=== PATIENT | female | born 1995 | race African-American/Black ===

== ENCOUNTER 2018-12-02 08:57 | Emergency (ER) | payer SELFPAY ==
[~2018-12-02] VITALS: Ht 165.1 cm; Wt 55.0 kg
[2018-12-02 09:03] VITALS: BP 134/80
== END 2018-12-02 11:47 | disposition left against medical advice (07) ==
LOC: ER 08:57
DX: M79.672 Pain in left foot (principal); M79.671 Pain in right foot; Z53.21 Procedure and treatment not carried out due to patient leaving prior to being seen by health care provider